=== PATIENT | female | born 1990 | race Caucasian/White ===

== ENCOUNTER 2018-01-22 07:54 | Emergency (ER) | payer OTHER ==
[2018-01-22] MEDS ORDERED: METHYLPREDNISOLONE 125 MG INJ ONE (08:30)
[2018-01-22] MEDS ORDERED: FAMOTIDINE 20 MG TAB ONE (08:31)
[2018-01-22] MEDS ORDERED: DIPHENHYDRAMINE 25 MG TAB/CAP ONE (08:31)
--- NOTE | 2018-01-22 11:34 | EDPHYS ---
Physician Documentation [facility] Name: Staci Dangelo Age: 27 yrs Sex: Female : 1990 Arrival Date: 01/22/2018 Time: 08:03 Bed 18 Private MD: ED Physician Alan Goel HPI: 01/22 09:00 This 27 yrs old Female presents to ER via Ambulatory with complaints of pm1 Allergic Reaction. 09:00 The patient presents with rash, that is diffuse, Sore throat. Onset: The pm1 symptoms/episode began/occurred 4 day(s) ago. Associated signs and symptoms: Pertinent positives: hives, Pertinent negatives: chest pain, fever, shortness of breath. Possible causes: Onion. At home the patient or guardian has treated the symptoms with Benadryl, Pepcid. Severity of symptoms: in the emergency department the symptoms are worse. The patient has experienced similar episodes in the past, several times. The patient has been recently seen by a physician: OB office yesterday and [place] the previous 2 days for the same complaint. 09:00 Patient 28 weeks . pm1 Historical: - Allergies: 08:08 No Known Allergies; ss - PMHx: 08:08 None; ss - PSHx: 08:08 c section; ss - Immunization history:: Adult Immunizations up to date. - Social history:: Smoking status: Patient/guardian denies using tobacco. - Ebola Screening: : Patient denies exposure to infectious person Patient denies travel to an Ebola-affected area in the 21 days before illness onset. ROS: 09:00 Constitutional: Negative for fever, chills, and weight loss, Eyes: Negative for injury, pm1 pain, redness, and discharge, Neck: Negative for injury, pain, and swelling, Cardiovascular: Negative for chest pain, palpitations, and edema. 09:00 Respiratory: Negative for shortness of breath, cough, wheezing, and pleuritic chest pain, Abdomen/GI: Negative for abdominal pain, nausea, vomiting, diarrhea, and constipation, Back: Negative for injury and pain, : Negative for injury, bleeding, discharge, and swelling, MS/Extremity: Negative for injury and deformity, Neuro: Negative for headache, weakness, numbness, tingling, and seizure. 09:00 ENT: Positive for sore throat, Negative for ear pain, difficulty swallowing, difficulty handling secretions, hoarseness. 09:00 Skin: Positive for rash, diffusely. Exam: 09:00 Constitutional: This is a well developed, well nourished patient who is awake, alert, pm1 and in no acute distress. Head/Face: Normocephalic, atraumatic. Eyes: Pupils equal round and reactive to light, extra-ocular motions intact. Lids and lashes normal. Conjunctiva and sclera are non-icteric and not injected. Cornea within normal limits. Periorbital areas with no swelling, redness, or edema. ENT: Nares patent. No nasal discharge, no septal abnormalities noted. Tympanic membranes are normal and external auditory canals are clear. Oropharynx with no redness, swelling, or masses, exudates, or evidence of obstruction, uvula midline. Mucous membranes moist. Neck: Trachea midline, no thyromegaly or masses palpated, and no cervical lymphadenopathy. Supple, full range of motion without nuchal rigidity, or vertebral point tenderness. No Meningismus. Chest/axilla: Normal chest wall appearance and motion. Nontender with no deformity. No lesions are appreciated. Cardiovascular: Regular rate and rhythm with a normal S1 and S2. No gallops, murmurs, or rubs. Normal PMI, no JVD. No pulse deficits. Respiratory: Lungs have equal breath sounds bilaterally, clear to auscultation and percussion. No rales, rhonchi or wheezes noted. No increased work of breathing, no retractions or nasal flaring. Abdomen/GI: Soft, non-tender, with normal bowel sounds. No distension or tympany. No guarding or rebound. No evidence of tenderness throughout. Back: No spinal tenderness. No costovertebral tenderness. Full range of motion. 09:00 MS/ Extremity: Pulses equal, no cyanosis. Neurovascular intact. Full, normal range of motion. 09:00 Skin: Appearance: normal except for affected area, consistent with urticaria, and is diffusely located. Vital Signs: 08:08 BP 116 / 69; Pulse 102; Resp 20; Temp 98.2(O); Pulse Ox 97% on R/A; Weight 80.29 kg; mh5 Height 5 ft. 2 in. (157.48 cm); Pain 3/10; 08:38 BP 111 / 66; Pulse 98; Resp 16; Pulse Ox 98% on R/A; Pain 3/10; sg 09:11 BP 106 / 78; Pulse 97; Resp 17; Pulse Ox 100% on R/A; mh5 08:08 Body Mass Index 32.38 (80.29 kg, 157.48 cm) [facility] MDM: 08:05 Patient medically screened. pm1 08:06 Patient medically screened. awilda 10:20 ED course: Patient feeling better and urticaria rash improving. pm1 10:20 ED course: No answer at office and no answering machine/service for Justa Cabrera pm1 [employer]. 10:46 ED course: Left message on answering machine at Dr. Cabrera's office. pm1 11:30 Physician consultation: Keisha Cabrera was called at 10:20, was contacted at 11:20, pm1 regarding patient's condition, Approved patient getting a prescription for medrol dose herbert for allergic reaction. 11:33 Data reviewed: vital signs. Data interpreted: Pulse oximetry: on room air is 100 %. pm1 Interpretation: normal. Counseling: I had a detailed discussion with the patient and/or guardian regarding: the historical points, exam findings, and any diagnostic results supporting the discharge/admit diagnosis, the need for outpatient follow up, to return to the emergency department if symptoms worsen or persist or if there are any questions or concerns that arise at home. Administered Medications: 08:32 Drug: Pepcid 20 mg Route: PO; sg 11:45 Follow up: Response: No adverse reaction; Marked relief of symptoms ss 08:32 Drug: Benadryl 50 mg Route: PO; sg 11:45 Follow up: Response: No adverse reaction; Marked relief of symptoms ss 08:32 Drug: SOLU-Medrol 125 mg {Note: in the R Ventrogluteal.} Route: IM; Site: Other; sg 11:45 Follow up: Response: No adverse reaction ss Disposition: 01/22/18 11:34 Discharged to Home. Impression: Urticaria. - Condition is Stable. - Discharge Instructions: Food Allergy, Hives. - Prescriptions for Medrol (Herbert) 4 mg Oral Tablets, Dose Pack - take 1 tablet by ORAL route as directed - follow package instructions; 1 packet. - Work release form, Medication Reconciliation Form, Thank You Letter form. - Follow up: Emergency Department; When: As needed; Reason: Worsening of condition. Follow up: Private Physician; When: 2 - 3 days; Reason: Recheck today's complaints, Continuance of care, Re-evaluation by your physician. - Problem is new. - Symptoms have improved. Addendum: 01/23/2018 15:27 Co-signature as Attending Physician, Alan Goel MD I agree with the assessment and c madrigal plan of care. Signatures: Jose Rodriguez RN RN sg Anderson, Corey, MD MD cha Smirch, Shelby, RN RN ss Carlyle Ricketts, ASHLEY GAME MANAGER pm1 Corrections: (The following items were deleted from the chart) 01/22 11:46 11:34 01/22/2018 11:34 Discharged to Home. Impression: Urticaria. Condition is Stable. ss Forms are Medication Reconciliation Form, Thank You Letter, Antibiotic Education, Prescription Opioid Use. Follow up: Emergency Department; When: As needed; Reason: Worsening of condition. Follow up: Private Physician; When: 2 - 3 days; Reason: Recheck today's complaints, Continuance of care, Re-evaluation by your physician. Problem is new. Symptoms have improved. pm1
--- NOTE | 2018-01-22 11:34 | ER ---
Nurse's Notes [facility] Name: Staci Dangelo Age: 27 yrs Sex: Female : 1990 Arrival Date: 01/22/2018 Time: 08:03 Bed 18 Private MD: Diagnosis: Urticaria Presentation: 01/22 08:04 Presenting complaint: Patient states: intermittent red, patchy, itchy rash that began 3 ss days ago. Pt states, "I think I am allergic to an onion. I was seen at [facility] twice, and they gave me meds and it would go away, but then just come back and get worse." Pt reports she is and just received RhoGAM injection yesterday. Transition of care: patient was not received from another setting of care. Onset: The symptoms/episode began/occurred 3 day(s) ago. Anaphylaxis evaluation, no signs or symptoms of anaphylaxis were noted. Onset of symptoms was January 19, 2018. Risk Assessment: Do you want to hurt yourself or someone else? Patient reports no desire to harm self or others. Initial Sepsis Screen: Does the patient meet any 2 criteria? No. Patient's initial sepsis screen is negative. Does the patient have a suspected source of infection? No. Patient's initial sepsis screen is negative. Care prior to arrival: None. 08:04 Method Of Arrival: Ambulatory ss 08:04 Acuity: TELMA 3 ss Historical: - Allergies: 08:08 No Known Allergies; ss - PMHx: 08:08 None; ss - PSHx: 08:08 c section; ss - Immunization history:: Adult Immunizations up to date. - Social history:: Smoking status: Patient/guardian denies using tobacco. - Ebola Screening: : Patient denies exposure to infectious person Patient denies travel to an Ebola-affected area in the 21 days before illness onset. Screenin:15 Abuse screen: Denies threats or abuse. Denies injuries from another. Nutritional sg screening: No deficits noted. Tuberculosis screening: No symptoms or risk factors identified. Never had TB. Fall Risk None identified. Assessment: 08:15 General: Appears in no apparent distress. uncomfortable, well groomed, well developed, sg well nourished, Behavior is calm, cooperative, appropriate for age. Pain: Denies pain. Neuro: No deficits noted. Cardiovascular: No deficits noted. Capillary refill is brisk in bilateral fingers Patient's skin is warm and dry. Respiratory: Airway is patent Respiratory effort is even, unlabored, Respiratory pattern is regular, symmetrical, Breath sounds are clear Denies cough, shortness of breath labored breathing, pain with respiration, pain with cough, pain with movement, air hunger. GI: No signs and/or symptoms were reported involving the gastrointestinal system. : No signs and/or symptoms were reported regarding the genitourinary system. EENT: No signs and/or symptoms were reported regarding the EENT system. Derm: Skin is pink, warm \\T\\ dry. Rash noted that is red, on face, back, abdomen, right arm, left arm, right leg and left leg. Musculoskeletal: No signs and/or symptoms reported regarding the musculoskeletal system. 08:40 Derm: Reports itching. sg Vital Signs: 08:08 BP 116 / 69; Pulse 102; Resp 20; Temp 98.2(O); Pulse Ox 97% on R/A; Weight 80.29 kg; mh5 Height 5 ft. 2 in. (157.48 cm); Pain 3/10; 08:38 BP 111 / 66; Pulse 98; Resp 16; Pulse Ox 98% on R/A; Pain 3/10; sg 09:11 BP 106 / 78; Pulse 97; Resp 17; Pulse Ox 100% on R/A; mh5 08:08 Body Mass Index 32.38 (80.29 kg, 157.48 cm) 5 ED Course: 08:03 Patient arrived in ED. sg 08:04 Jose Rodriguez, JALEN is Primary Nurse. sg 08:04 Carlyle Ricketts NP is PHCP. pm1 08:04 Alan Goel MD is Attending Physician. pm1 08:07 Triage completed. ss 08:08 Arm band placed on right wrist. ss 08:15 No provider procedures requiring assistance completed. Patient did not have IV access sg during this emergency room visit. 08:20 Patient has correct armband on for positive identification. Bed in low position. Call ss light in reach. Side rails up X2. Pulse ox on. NIBP on. Warm blanket given. Head of bed elevated. Administered Medications: 08:32 Drug: Pepcid 20 mg Route: PO; sg 11:45 Follow up: Response: No adverse reaction; Marked relief of symptoms ss 08:32 Drug: Benadryl 50 mg Route: PO; 11:45 Follow up: Response: No adverse reaction; Marked relief of symptoms 08:32 Drug: SOLU-Medrol 125 mg {Note: in the R Ventrogluteal.} Route: IM; Site: Other; 11:45 Follow up: Response: No adverse reaction Outcome: 11:34 Discharge ordered by MD. pm1 11:45 Discharged to home ambulatory. 11:45 Condition: good 11:45 Discharge instructions given to patient, Instructed on discharge instructions, follow up and referral plans. medication usage, safety practices, Demonstrated understanding of instructions, follow-up care, medications, Prescriptions given X 1. 11:46 Patient left the ED. Signatures: Jose Rodriguez RN RN Elayne Richter RN RN Carlyle Ricketts, ASHLEY REFERRAL AND INFORMATION AIDE 1 Jojo Alfonso [facility] Corrections: (The following items were deleted from the chart) 08:20 08:08 BP 116 / 69; Pulse 102bpm; Resp 20bpm; Pulse Ox 97% RA; 80.29 kg; Height 5 ft. 2 5 in.; BMI: 32.3; Pain 3/10; ss
== END 2018-01-22 11:46 | disposition home or self-care (01) ==
LOC: ER 07:54
DX: L50.9 Urticaria, unspecified (principal)
CPT/HCPCS: 96372; 99283; J2930